=== PATIENT | male | born 1975 | race Caucasian/White ===

== ENCOUNTER 2016-09-12 19:28 | Emergency (ER) | payer OTHER ==
[~2016-09-12] VITALS: Ht 170.2 cm; Wt 60.0 kg
[~2016-09-12 19:28] MED LIST: ADVAIR 250/501 DISK IH; AMLODIPINE BES2.5 MG PO; ASPIR-LOW81 MG PO; ASPIRIN81 M1 PO; ATORVASTATIN CA20 MG PO; CETIRIZINE HCL10 M2 PO; CLARITIN,ALAVAR10 MG PO; DOXYCYCLINE HY100 M3 PO; FLONASE16 G1 BOTH NARES; HUMALOG100 UNIT/1 SC; HUMALOG100 UNIT/2 SQ; IMODIUM MS REL1 EACH PO; LANTUS 3 M100 UNITS1 SC; LANTUS 3 M100 UNITS1 SQ; LANTUS100 UNIT/2 SQ; LIPITOR40 MG PO; LOSARTAN POTASS25 MG PO; METHADONE10 MG PO; MOTRIN800 MG PO; NICOTINE PATCH1 EAC2 TD; PREDNISONE10 MG PO; PRINIVIL20 MG PO; PROTONIX40 MG PO; SIMVASTATIN40 M1 PO; VENTOLIN HFA18 GM IH; ZOFRAN4 MG PO
[2016-09-12] MEDS ORDERED: NORVASC5 MG PO (19:52)
[2016-09-12 21:52] VITALS: BP 148/87
== END 2016-09-12 21:54 | disposition home or self-care (01) ==
LOC: EME 19:28 → EXP 19:28
DX: R51 Headache (principal); E11.9 Type 2 diabetes mellitus without complications; J44.9 Chronic obstructive pulmonary disease, unspecified; E78.5 Hyperlipidemia, unspecified; I10 Essential (primary) hypertension; K21.9 Gastro-esophageal reflux disease without esophagitis; Z79.4 Long term (current) use of insulin; Z79.82 Long term (current) use of aspirin; F17.200 Nicotine dependence, unspecified, uncomplicated
CPT/HCPCS: 70450; 99281; 99285; J1885

== ENCOUNTER 2016-10-20 17:31 | Emergency (ER) | payer OTHER ==
[~2016-10-20] VITALS: Ht 170.2 cm; Wt 59.6 kg
[~2016-10-20 17:31] MED LIST changes: +NORVASC5 MG PO
[2016-10-20] MEDS ORDERED: ULTRAM50 MG PO (18:04)
[2016-10-20] MEDS ORDERED: PEN-VEE K,VEET500 MG PO (18:04)
[2016-10-20 18:11] VITALS: BP 163/114
== END 2016-10-20 18:12 | disposition home or self-care (01) ==
LOC: EME 17:31
DX: K02.9 Dental caries, unspecified (principal)
CPT/HCPCS: 99281; 99283

== ENCOUNTER 2017-05-17 17:59 | Emergency (ER) | payer OTHER ==
[~2017-05-17] VITALS: Ht 170.2 cm; Wt 63.6 kg
[~2017-05-17 17:59] MED LIST changes: +PEN-VEE K,VEET500 MG PO; +ULTRAM50 MG PO
[2017-05-17 19:03] LABS: EOSINOPHIL (%) 0 % (0-5); HEMATOCRIT 38.7 % (38.0-50.0); IMMATURE GRANULOCYTE (%) 0.3 % (0.0-0.7); INSTRUMENT ABS NEUTROPHIL CT 6.1 K/uL; MCH 27.7 PG (29.0-34.0); MCHC 33.9 G/DL (30.0-36.0); MCV 81.8 FL (86-99); MEAN PLAT.VOLUME 9.4 uM^3 (9.0-12.4); MONOCYTE (%) 7.2 % (3-12); MONOCYTE COUNT 0.6 K/uL (0-0.8); NEUTROPHIL (%) 79.2 % (45-76); NEUTROPHIL COUNT 6.1 K/uL (1.8-6.4); PLATELET COUNT 218 K/uL (156-360); RBC DIS.WIDTH-CV 13.6 % (11.8-14.6); RBC DIS.WIDTH-SD 40.9 % (39-53); RED BLOOD COUNT 4.73 M/uL (4.00-5.50); WHITE BLOOD COUNT 7.7 K/uL (4.1-10.2)
[2017-05-17 19:20] LABS: CHLORIDE 104 mEq/L (99-109); POTASSIUM 3.6 mEq/L (3.7-5.4); SODIUM 138 mEq/L (136-147)
[2017-05-17 19:22] LABS: GLUCOSE 119 mg/dL (70-99)
[2017-05-17 19:23] LABS: ANION GAP 8 MEQ/L (2-14)
[2017-05-17 19:26] LABS: GFR ESTIMATE (CALCULATED) > 59 mL/min/
[2017-05-17 19:27] LABS: UREA NITROGEN (BUN) 17 mg/dL (9-23)
[2017-05-17 19:47] LABS: ERTH.SED.RATE 4 MM/HR (0-15)
[2017-05-17] MEDS ORDERED: NORCO 10/3251 TABLET PO (20:20)
[2017-05-17] MEDS ORDERED: INDOCIN50 MG PO (20:20)
[2017-05-17 21:14] VITALS: BP 163/98
== END 2017-05-17 21:15 | disposition home or self-care (01) ==
LOC: EME 17:59
PROVIDERS: Physician Assistant
PROC: 3E0234Z Introduction of Serum, Toxoid and Vaccine into Muscle, Percutaneous Approach (ICD-10-PCS; principal; 2017-05-17)
DX: S05.02XA Injury of conjunctiva and corneal abrasion without foreign body, left eye, initial encounter (principal); R51 Headache; M54.2 Cervicalgia; X58.XXXA Exposure to other specified factors, initial encounter; Y93.E9 Activity, other interior property and clothing maintenance; Y92.009 Unspecified place in unspecified non-institutional (private) residence as the place of occurrence of the external cause; Z23 Encounter for immunization; Z98.818 Other dental procedure status; I10 Essential (primary) hypertension; E78.5 Hyperlipidemia, unspecified; E11.9 Type 2 diabetes mellitus without complications; Z79.4 Long term (current) use of insulin; Z79.82 Long term (current) use of aspirin; F17.200 Nicotine dependence, unspecified, uncomplicated
CPT/HCPCS: 70450; 80048; 85025; 85651; 99281; 99285; J1885; J3010

== ENCOUNTER 2017-08-05 19:29 | Emergency (ER) | payer OTHER ==
[~2017-08-05] VITALS: Ht 170.2 cm; Wt 58.7 kg
[~2017-08-05 19:29] MED LIST changes: +INDOCIN50 MG PO; +NORCO 10/3251 TABLET PO
[2017-08-05 22:37] LABS: EOSINOPHIL (%) 0 % (0-5); HEMATOCRIT 43.5 % (38.0-50.0); IMMATURE GRANULOCYTE (%) 0.4 % (0.0-0.7); IMMATURE GRANULOCYTE COUNT 0.1 K/uL; INSTRUMENT ABS NEUTROPHIL CT 12.6 K/uL; LYMPHOCYTE COUNT 0.9 K/uL (1.0-2.8); MCH 28.1 PG (29.0-34.0); MCV 82.5 FL (86-99); MONOCYTE (%) 4.2 % (3-12); MONOCYTE COUNT 0.6 K/uL (0-0.8); NEUTROPHIL (%) 89.1 % (45-76); NEUTROPHIL COUNT 12.6 K/uL (1.8-6.4); PLATELET COUNT 282 K/uL (156-360); RBC DIS.WIDTH-CV 13.2 % (11.8-14.6); RBC DIS.WIDTH-SD 39.8 % (39-53); RED BLOOD COUNT 5.27 M/uL (4.00-5.50); WHITE BLOOD COUNT 14.1 K/uL (4.1-10.2)
[2017-08-05 22:52] LABS: CHLORIDE 101 mEq/L (99-109); POTASSIUM 3.8 mEq/L (3.7-5.4); SODIUM 139 mEq/L (136-147)
[2017-08-05 22:54] LABS: GLUCOSE 129 mg/dL (70-99)
[2017-08-05 22:55] LABS: ANION GAP 12 MEQ/L (2-14)
[2017-08-05 22:57] LABS: GFR ESTIMATE (CALCULATED) > 59 mL/min/
[2017-08-05 22:58] LABS: UREA NITROGEN (BUN) 17 mg/dL (9-23)
[2017-08-06] MEDS ORDERED: PERCOCET 5/31 TABLET PO (00:12)
[2017-08-06] MEDS ORDERED: AUGMENTIN875 MG PO (00:12)
[2017-08-06] MEDS ORDERED: TORADOL10 MG PO (00:12)
[2017-08-06 01:00] VITALS: BP 151/89
== END 2017-08-06 01:01 | disposition home or self-care (01) ==
LOC: EXP 19:29 → EME 19:29 → EXP 08-06 01:01
PROVIDERS: Physician Assistant
DX: R51 Headache (principal); L03.211 Cellulitis of face; E11.9 Type 2 diabetes mellitus without complications; I10 Essential (primary) hypertension; F17.200 Nicotine dependence, unspecified, uncomplicated; Z91.19 Patient's noncompliance with other medical treatment and regimen
CPT/HCPCS: 70450; 80048; 85025; 99281; 99285; J1100; J1885; J3010